=== PATIENT | female | born 1955 | race Caucasian/White ===

== ENCOUNTER 2017-02-15 16:53 | Emergency (ER) | payer BC ==
--- NOTE | 2017-02-15 18:22 | UC ---
Throat Pain/Nasal [place] HPI - HPI Summary HPI Summary: 61 year old female presents with complains of cough secondary to post nasal drip. - History of Current Complaint Stated Complaint: COUGH,HEAD CONGESTION Time Seen by Provider: 02/15/17 18:22 Onset/Duration: Sudden Onset Severity: Moderate Cough: Nonproductive - Allergies/Home Medications Allergies/Adverse Reactions: Allergies Allergy/AdvReac Type Severity Reaction Status Date / Time No Known Allergies Allergy Verified 02/15/17 18:25 PMH/Surg Hx/FS Hx/Imm Hx - Surgical History Surgical History: Yes Surgery Procedure, Year, and Place: hysterectomy - Social History Alcohol Use: None Substance Use Type: None Smoking Status (MU): Never Smoked Tobacco - Immunization History Most Recent Influenza Vaccination: none Review of Systems Constitutional: Negative Skin: Negative Eyes: Negative ENT: Sore Throat, Nasal Discharge, Sinus Congestion, Sinus Pain/Tenderness Respiratory: Negative Cardiovascular: Negative Gastrointestinal: Negative Genitourinary: Negative Motor: Negative Neurovascular: Negative Musculoskeletal: Negative Neurological: Negative Psychological: Negative All Other Systems Reviewed And Are Negative: Yes Physical Exam Triage Information Reviewed: Yes Vital Signs Reviewed: Yes Eye Exam: Normal ENT: Positive: Pharyngeal erythema, Nasal congestion, Nasal drainage, Tonsillar swelling, Sinus tenderness Dental Exam: Normal Neck exam: Normal Neck: Positive: 1 Respiratory Exam: Normal Cardiovascular Exam: Normal Abdominal Exam: Normal Musculoskeletal Exam: Normal Neurological Exam: Normal Psychological Exam: Normal Skin Exam: Normal Throat Pain/Nasal Course/Dx - Differential Dx/Diagnosis Provider Diagnoses: allergic rhinitis Discharge - Discharge Plan Condition: Stable Disposition: HOME Prescriptions: Amoxicillin PO (*) [Amoxicillin 875 MG (*)] 875 mg PO BID #20 tab Benzonatate [TESSALON 200 MG CAP] 200 mg PO TID PRN #30 cap PRN Reason: Cough Guaifenesin-Codeine [Cheratussin AC] 1 teasp PO Q8H PRN #120 ml MDD 15 ml PRN Reason: Cough LoraTADine TAB(NF) [Claritin 10 MG TAB(NF)] 10 mg PO DAILY #30 tab Patient Education Materials: Allergic Rhinitis (ED) Referrals: Jose G Gautam MD [Primary Care Provider] -
[2017-02-15 18:25] VITALS: BP 126/67
== END 2017-02-15 18:40 | disposition home or self-care (01) ==
LOC: UCCORT 16:53
DX: J30.9 Allergic rhinitis, unspecified (principal); Z90.710 Acquired absence of both cervix and uterus
CPT/HCPCS: 99212; G0463

== ENCOUNTER 2018-11-10 16:11 | Emergency (ER) | payer BC ==
[2018-11-10 16:52] VITALS: BP 115/70
--- NOTE | 2018-11-10 17:36 | UC ---
Lower Extremity/Ankle HPI - HPI Summary HPI Summary: 63 year old female injured left foot playing frisbee with her grand-daughter 2 days ago. Was wearing flip-flops. States she landed on it oddly, did not fall, no head injury. - History of Current Complaint Chief Complaint: UCLowerExtremity Stated Complaint: LFT FOOT INJURY Time Seen by Provider: 11/10/18 17:25 Onset/Duration: Sudden Onset Pain Intensity: 2 Aggravating Factor(s): Standing, Ambulation Alleviating Factor(s): Rest Able to Bear Weight: Yes - Risk Factors Gout Risk Factors: Negative Septic Arthritis Risk Factor: Negative - Allergies/Home Medications Allergies/Adverse Reactions: Allergies Allergy/AdvReac Type Severity Reaction Status Date / Time No Known Allergies Allergy Verified 11/10/18 16:52 Home Medications: Home Medications NK [No Home Medications Reported] 11/10/18 [History Confirmed 11/10/18] PMH/Surg Hx/FS Hx/Imm Hx Previously Healthy: Yes - Surgical History Surgical History: Yes Surgery Procedure, Year, and Place: hysterectomy - Family History Known Family History: Positive: Non-Contributory - Social History Alcohol Use: None Substance Use Type: None Smoking Status (MU): Never Smoked Tobacco - Immunization History Most Recent Influenza Vaccination: none Review of Systems All Other Systems Reviewed And Are Negative: Yes Constitutional: Negative: Fever, Chills, Fatigue Skin: Negative: Rash, Bruising Eyes: Negative: Blurred Vision, Eye Redness ENT: Negative: Sore Throat, Sinus Pain/Tenderness Respiratory: Negative: Shortness Of Breath, Cough Cardiovascular: Negative: Palpitations, Chest Pain Gastrointestinal: Negative: Abdominal Pain, Vomiting, Diarrhea, Nausea Genitourinary: Negative: Dysuria Motor: Negative: Decreased ROM Neurovascular: Negative: Decreased Sensation, Decreased Pulses Musculoskeletal: Positive: Arthralgia - left great toe region with swelling Neurological: Negative: Headache, Weakness, Paresthesia, Numbness Physical Exam Triage Information Reviewed: Yes Appearance: Well-Appearing Vital Signs: Initial Vital Signs Temp 98.3 F 11/10/18 16:46 Pulse 78 11/10/18 16:46 Resp 18 11/10/18 16:46 BP 115/70 11/10/18 16:46 Pulse Ox 95 11/10/18 16:46 Vital Signs Reviewed: Yes Eyes: Positive: Conjunctiva Clear ENT: Positive: Normal ENT inspection Neck exam: Normal Respiratory Exam: Normal Cardiovascular Exam: Normal Abdominal Exam: Normal Musculoskeletal: Positive: Strength Intact, ROM Intact, Other: - tenderness, mild swelling 1st PIP joint. Neurological: Positive: Alert Psychological Exam: Normal Skin Exam: Normal Diagnostics - Radiology No standard instances Radiology Interpretation Completed By: Radiologist Summary of Radiographic Findings: Order Information: FOOT LEFT 3+ VWS. Accession Number: [id number]. CPT: 63875. INDICATION: Left foot injury. TECHNIQUE: 3 views of the left foot were obtained. FINDINGS: The soft tissues are unremarkable. The bone mineralization is within normal. limits. No fracture is identified. There is an incidental os peroneum. Achilles and. plantar calcaneal enthesophytes are present. Anatomic alignment is maintained. The joint. spaces are preserved. IMPRESSION: NO EVIDENCE FOR FRACTURE. Lower Extremity Course/Dx - Differential Dx/Diagnosis Provider Diagnosis: Sprain of foot Discharge - Sign-Out/Discharge Documenting (check all that apply): Patient Departure All imaging exams completed and their final reports reviewed: Yes - Discharge Plan Condition: Stable Disposition: HOME Patient Education Materials: Foot Sprain (ED) Referrals: No Primary Care Phys,NOPCP [Primary Care Provider] - Additional Instructions: Rest, ice, elevate foot. Ibuprofen or Acetaminophen over the counter as needed for pain. - Billing Disposition and Condition Condition: STABLE Disposition: Home
== END 2018-11-10 18:25 | disposition home or self-care (01) ==
LOC: UCCORT 16:11
DX: S93.602A Unspecified sprain of left foot, initial encounter (principal); X50.0XXA Overexertion from strenuous movement or load, initial encounter; Y93.74 Activity, frisbee; Y92.9 Unspecified place or not applicable
CPT/HCPCS: 99211; G0463

== ENCOUNTER 2019-04-29 12:37 | Emergency (ER) | payer BC ==
[2019-04-29 13:34] VITALS: BP 129/57
--- NOTE | 2019-04-29 13:43 | UC ---
Respiratory Complaint HPI - HPI Summary HPI Summary: 63 year old female presents with two day complaint of sore throat, cough, nausea , headache and possible fever. Denies associated cough, sob nor chest pain. - History of Current Complaint Chief Complaint: UCGeneralIllness Stated Complaint: LEMON,NAUSEA,COUGH Time Seen by Provider: 04/29/19 13:27 Pain Intensity: 3 - Allergies/Home Medications Allergies/Adverse Reactions: Allergies Allergy/AdvReac Type Severity Reaction Status Date / Time No Known Allergies Allergy Verified 04/29/19 13:29 Home Medications: Home Medications Dm/PE/Acetaminophen/Chlorphenr [Joya-Spurger Plus Cld-Cough Cp] 1 cap PO ONCE [History Confirmed 04/29/19] PMH/Surg Hx/FS Hx/Imm Hx Previously Healthy: Yes - Surgical History Surgical History: Yes Surgery Procedure, Year, and Place: hysterectomy - Family History Known Family History: Positive: Non-Contributory - Social History Alcohol Use: None Substance Use Type: None Smoking Status (MU): Never Smoked Tobacco - Immunization History Most Recent Influenza Vaccination: none Review of Systems All Other Systems Reviewed And Are Negative: Yes Constitutional: Positive: Chills, Fatigue Skin: Positive: Negative Eyes: Positive: Negative ENT: Positive: Sore Throat, Nasal Discharge. Negative: Ear Ache Respiratory: Negative: Shortness Of Breath, Cough Cardiovascular: Negative: Palpitations, Chest Pain Gastrointestinal: Positive: Nausea. Negative: Abdominal Pain, Vomiting, Diarrhea Genitourinary: Positive: Negative Motor: Positive: Negative Neurovascular: Positive: Negative Musculoskeletal: Positive: Negative Neurological: Positive: Headache. Negative: Weakness Psychological: Positive: Negative Is Patient Immunocompromised?: No Physical Exam Triage Information Reviewed: Yes Appearance: Well-Appearing Vital Signs: Initial Vital Signs Temp 99.3 F 04/29/19 13:28 Pulse 100 04/29/19 13:28 Resp 18 04/29/19 13:28 BP 129/57 04/29/19 13:28 Pulse Ox 93 04/29/19 13:28 Eye Exam: Normal ENT: Positive: Normal ENT inspection Neck: Positive: Supple, Nontender, No Lymphadenopathy Respiratory: Positive: Lungs clear, Normal breath sounds, No respiratory distress. Negative: Crackles, Rhonchi, Wheezing Cardiovascular: Positive: RRR, No Murmur, Brisk Capillary Refill Abdomen Description: Positive: Nontender, Soft Musculoskeletal Exam: Normal Neurological Exam: Normal Psychological Exam: Normal Skin Exam: Normal Skin: Negative: Rashes Respiratory Course/Dx - Differential Dx/Diagnosis Provider Diagnosis: Influenza A Discharge ED - Sign-Out/Discharge Documenting (check all that apply): Patient Departure All imaging exams completed and their final reports reviewed: No Studies - Discharge Plan Condition: Stable Disposition: HOME Prescriptions: Oseltamivir CAP* [Tamiflu CAP*] 75 mg PO BID 5 Days #10 cap Patient Education Materials: Influenza (ED) Referrals: No Primary Care Phys,NOPCP [Primary Care Provider] - Additional Instructions: You have tested positive for influenza A. Drink plenty of fluids. Take Tylenol or ibuprofen as needed for fever/pain. Follow-up with your Urgent Care or your Primary Care Physician if your symptoms persist more than 72 hours. - Billing Disposition and Condition Condition: STABLE Disposition: Home
[2019-04-29 14:01] LABS: Influenza A Molecular POSITIVE (Negative)
== END 2019-04-29 14:21 | disposition home or self-care (01) ==
LOC: UCCORT 12:37
DX: J10.1 Influenza due to other identified influenza virus with other respiratory manifestations (principal)
CPT/HCPCS: 99212; G0463